=== PATIENT | female | born 1995 | race Hispanic/Latino ===

== ENCOUNTER 2025-07-31 11:25 | Inpatient (IN) | payer MEDICAID, SELFPAY ==
[2025-07-31] VITALS (174 sets, daily range): BP systolic 79–143; BP diastolic 48–105; PULSE 72–247; RESP 12–17; TEMP 36.7–37.8; O2SAT 87–100
--- NOTE | ~2025-07-31 | US_ITS ---
EXAMINATION: US OB limited, 07/31/2025 12:20 CDT HISTORY: position, limited care Comparison: None Technique: Chen-scale and color Doppler images were obtained. Findings: Single live intrauterine in longitudinal lie and vertex presentation. Placenta appears located on the right side posteriorly, evaluation is limited but the placenta appears approximately 4.3 cm away from the cervix. IMPRESSION: Single live intrauterine detailed above Reviewed, dictated and finalized at location P.
--- NOTE | ~2025-07-31 | CT_ITS ---
CT ABDOMEN AND PELVIS WITHOUT CONTRAST Clinical History: check stability of internal abdominal bleed Comparison: 7 hours prior Technique: Unenhanced axial images lung bases to symphysis pubis Coronal, sagittal reformats CT images acquired with automatic exposure control for dose reduction DLP: 711 mGy-cm Findings/impression: 1. Volume and distribution of intra-abdominal hemorrhage not significantly changed. 2. No other significant change or acute abnormality. 3. Additional findings as before. Reviewed, dictated and finalized at location R.
--- NOTE | ~2025-07-31 | CT_ITS ---
CT abdomen pelvis w con Clinical History: hypotension post section . Comparison: None Technique: Axial images lung bases to symphysis pubis 100 mL Omnipaque 350 Coronal, sagittal reformats CT images acquired with automatic exposure control for dose reduction DLP: 496 mGy-cm Findings: Lung bases: Clear. Visualized heart and pericardium: Unremarkable. Liver: Unremarkable. Gallbladder: Unremarkable. Spleen: Unremarkable. Pancreas: Unremarkable. Adrenal glands: Unremarkable. Kidneys: Right kidney- No hydronephrosis. No renal stones. Left kidney- No hydronephrosis. No renal stones. Distal esophagus/stomach: Unremarkable. Small bowel loops: Normal caliber and wall thickness. Colon: Normal caliber and wall thickness. Appendix not seen. Nodes: No enlarged nodes. Peritoneum: Scattered peritoneal fluid and hemorrhage. Extensive free air. Urinary bladder: Baum catheter. Uterus: Enlarged/. Several foci of hemorrhage anterior to lower uterine segment; associated subcutaneous, intramuscular, and intra-abdominal locules of gas consistent with recent operative state. Adnexa: Poorly distinguished from fluid and blood products. Small blush right side probably venous. Bones: No acute bony abnormality. Soft tissues: Small intramuscular gas lower paraspinal muscle likely iatrogenic. Aorta: No aneurysm or dissection. IVC: Unremarkable. Main portal vein/SMV/splenic vein: Patent. IMPRESSION: 1. Scattered foci of intra-abdominal hemorrhage, fluid, and free air after . Reviewed, dictated and finalized at location R. IMPRESSION: 1. Scattered foci of intra-abdominal hemorrhage, fluid, and free air after C-s ection.
[2025-07-31] MEDS: LACTATED RINGERS 1,000 ML 999 ML IV CONT (12:18)
[2025-07-31 12:35] LABS: Hematocrit 39.4 % (37.0-47.0); Hemoglobin 13.7 g/dL (12.0-15.0); Immature Granulocyte Percent A 0.5 % (0-0.5); Lymphocytes Absolute Auto 1.78 K/mm3 (0.9-3.2); Mean Corpuscular HGB Conc 34.8 g/dl (32-36); Mean Corpuscular Hemoglobin 31.5 pg (26-34); Mean Corpuscular Volume 90.6 fl (80-100); Nucleated Red Blood Cells Absolute Auto 0.000 K/mm3 (0.0-0.012); Nucleated Red Blood Cells Perc 0.0 % (0.0-0.2); Platelet Count Result 174 k/mm3 (150-375); Red Blood Count 4.35 M/mm3 (4.2-5.4); White Blood Count 12.3 K/mm3 (4.5-10.0)
--- NOTE | 2025-07-31 12:38 | LDADM ---
This patient, Evette Harper, was admitted to Labor/Delivery/Recovery 120 on 07/31/25 at 11:25. Plans for labor and , pain management and were discussed with patient. Patient/family oriented to hospital policies and general routines including ID bracelet, bed and alarms, visiting hours, pain management, procedures, bathroom and other care routines, personal items, smoking policy, room service/diet and guest tray routines, infant security routines, and visiting hours. Patient/Family are encouraged to report perceived risks to care and to ask questions if they do not understand what they are told or what they should do. See OBIX for further documentation.
[2025-07-31 12:50] LABS: Alanine Aminotransferase 15 U/L (6-35); Albumin Level 4.1 g/dL (3.5-5.1); Alkaline Phosphatase 224 U/L (38-126); Anion Gap 9 mmol/L (4-12); Aspartate Amino Transferase 30 U/L (14-36); Bilirubin,Total 0.6 mg/dL (0.2-1.3); Blood Urea Nitrogen 10 mg/dL (7-17); Calcium 9.1 mg/dL (8.4-10.2); Carbon Dioxide 17 mmol/L (22-30); Chloride 107 mmol/L (98-107); Estimated Glomerular Filt Rate > 60; Glucose 76 mg/dL (65-110); Potassium 4.1 mmol/L (3.4-5.0); Sodium 133 mmol/L (137-145); Total Protein 7.9 g/dL (6.3-8.2); Uric Acid 5.2 mg/dL (2.5-7.5)
--- NOTE | 2025-07-31 13:03 | P.HP_ITS ---
H&P: HPI History of Present Illness Date/Time: 07/31/25 13:03 Chief Complaint: Labor at Term Narrative: This is a pleasant 29-year-old 2 para 1 whose last menstrual period is unknown but she believe she is at 39 and half weeks gestation apparently confirmed by 6 week ultrasound who is in town in active labor she is traveling through she had an early ultrasound by her history at 6 weeks putting her at 39 and weeks gestation do not have a group B strep screen or any other information present and the labs will be drawn. She has had a previous non emergent C- section for oligohydramnios and has a low-transverse incision as far she knows. She was given the risks and benefits of a trial of labor after and asked to proceed Review of Systems 2 Review of Systems: All systems reviewed & are unremarkable except as noted in HPI and below Meds Home Medications and Allergies Home Medications ?Medication ?Instructions ?Recorded ?Confirmed ?Type prenat.vits,carley,[id number] 1 tablet PO DAILY 07/3107/31/25 History Allergies Allergy/AdvReac Type Severity Reaction Status Date / Time No Known Allergies Allergy Verified 07/31/25 12:38 Vital Signs Vital Signs - 24 hr 07/31/25 12:03 07/31/25 12:16 07/31/25 12:46 Pulse Rate 90 87 86 Blood Pressure 142/85 H 136/91 H 143/79 H Exam Const: General: cooperative, healthy appearing and comfortable Nutritional Appearance: average body habitus Orientation/consciousness: oriented to person, oriented to place and oriented to time HENMT: Head: normal to inspection Resp: Effort & Inspection: normal respiratory effort Cardio: Rate: regular rate Rhythm: regular rhythm Heart sounds: S1 normal heart sound present and S2 normal heart sound present GI: Inspection: normal to inspection (Gravid soft uterus) : External Female Exam: normal external appearance Speculum Exam - Vagina: normal appearance of the vagina Speculum Exam - Cervix: normal appearance of the cervix (Cervix 375/-1. FHT is reassuring) H&P: Results Labs Labs: Short CBC 07/31/25 Range/Units 12:26 WBC 12.3 H (4.5-10.0) K/mm3 Hgb 13.7 (12.0-15.0) g/dL Hct 39.4 (37.0-47.0) % Plt Count 174 (150-375) k/mm3 BMP 07/31/25 12:26 Sodium 133 L Potassium 4.1 Chloride 107 Carbon Dioxide 17 L BUN 10 Creatinine 0.67 L Glucose 76 Calcium 9.1 Liver Function 07/31/25 Range/Units 12:26 Total Bilirubin 0.6 (0.2-1.3) mg/dL AST 30 (14-36) U/L ALT 15 (6-35) U/L Alkaline Phosphatase 224 H (38-126) U/L Albumin 4.1 (3.5-5.1) g/dL Assessment and Plan Assessment and plan (1) Term : Code(s): Z34.90 - Encounter for supervision of normal , unspecified, unspecified trimester Status: Acute (2) No care in current : Code(s): O09.30 - Supervision of with insufficient care, unspecified trimester Status: Acute (3) Previous section: Code(s): Z98.891 - History of uterine scar from previous surgery Status: Acute Plan Patient opts for trial labor after risks and benefits reviewed we will get an epidural will start ampicillin as group B strep screen not known.
[2025-07-31] MEDS: LACTATED RINGERS 1,000 ML 125 ML IV CONT ×2 (13:10→19:49)
[2025-07-31 13:21] LABS: Hepatitis B Surface Antigen Negative (Negative)
[2025-07-31 13:27] LABS: Syphilis IgG/IgM Antibody Non-Reactive (Nonreactive)
[2025-07-31 13:30] LABS: HIV 1/2 Ab P24 Ag Result Negative (Negative)
[2025-07-31] MEDS: AMPICILLIN SODIUM 2 GM in SODIUM CHLORIDE 0.9% IV 100 ML 200 ML IVPB (13:30)
--- NOTE | 2025-07-31 14:03 | PM.OBPNLAB ---
Pain Control Date/time seen: 07/31/25 14:03 Pain control: tolerating well and epidural Pelvic Exam Dilation (cm): 4 Effacement (%): 90 station: -1 Amniotic membrane status: Leaking Comments: arom mec
[2025-07-31] MEDS: SODIUM CHLORIDE 0.9% IV 300 ML 600 ML I-UTERINE (16:34)
[2025-07-31] MEDS: AMPICILLIN SODIUM 1 GM in SODIUM CHLORIDE 0.9% IV 50 ML 100 ML IVPB (17:46)
[2025-07-31] MEDS: ONDANSETRON INJ 4 MG/2 ML VIAL IV PUSH (19:27)
--- NOTE | 2025-07-31 19:54 | WPDHPUPDATE1 ---
History and Physical Update Update Date/Time: 07/31/25 19:54 History and Physical has been reviewed, including an updated exam of the patient. There are NO changes in the patient's condition. Risks, benefits, and alternatives have been discussed and questions answered. Patient agrees to proceed with procedure. Recurrent late decelerations with the earliest noted. Baby has recovered cervix has been unchanged for several hours and she was offered repeat section risks and benefits reviewed in great detail she had all questions answered and agreed to proceed
--- NOTE | 2025-07-31 19:55 | PM.DS ---
DS: Admitting Diagnosis Discharge Date 08/03/2025 Admitting Diagnosis Term /previous section/no DS: Discharge Diagnosis Discharge Diagnosis (1) Term : Code(s): Z34.90 - Encounter for supervision of normal , unspecified, unspecified trimester Status: Acute (2) No care in current : Code(s): O09.30 - Supervision of with insufficient care, unspecified trimester Status: Acute (3) Previous section: Code(s): Z98.891 - History of uterine scar from previous surgery Status: Acute DS: Summary Hospital Course Reason for hospitalization: Patient was admitted to walk-in with no care and 39 a half weeks gestation by best estimate she was to vaginal after but underwent low-transverse section on 07/31/2025 Hospital Course: Patient's hospital course was unremarkable for postop anemia. The there is set suspected small bleed in the abdomen and she received 2units of blood over the following 48hours her hemoglobin remained stable and and appeared that she was having no more active bleeding.. She remained afebrile. She was up, voiding without difficulty, eating regular with ambulating, generally complaints Time Spent with Patient Time attestation: Total time spent providing and/or coordinating discharge services: Exam Const: General: cooperative, healthy appearing and comfortable Nutritional Appearance: average body habitus Orientation/consciousness: oriented to person, oriented to place and oriented to time Resp: Effort & Inspection: normal respiratory effort Cardio: Rate: regular rate Rhythm: regular rhythm Heart sounds: S1 normal heart sound present and S2 normal heart sound present GI: Inspection: normal to inspection and incision (Wounds are clean dry and intact) DS: Data Data Completed and Pending Labs on day of discharge: Labs from last 24 hours 07/31/25 07/31/25 12:27 12:26 WBC 12.3 H RBC 4.35 Hgb 13.7 Hct 39.4 MCV 90.6 MCH 31.5 MCHC 34.8 RDW 12.6 Plt Count 174 MPV 12.7 H Immature Gran % (Auto) 0.5 Neut % (Auto) 80.5 H Lymph % (Auto) 14.4 L [place] % (Auto) 4.2 Eos % (Auto) 0.2 Baso % (Auto) 0.2 Lymph # (Auto) 1.78 [place] # (Auto) 0.5 Eos # (Auto) 0.0 Baso # (Auto) 0.0 Abs Immat Gran (auto) 0.06 H Absolute Neuts (auto) 9.9 H Absolute Nucleated RBC 0.000 Nucleated RBC % 0.0 Sodium 133 L Potassium 4.1 Chloride 107 Carbon Dioxide 17 L Anion Gap 9 BUN 10 Creatinine 0.67 L Estim Creat Clear Calc Not Reportable Estimated GFR > 60 Glucose 76 Uric Acid 5.2 Calcium 9.1 Total Bilirubin 0.6 AST 30 ALT 15 Alkaline Phosphatase 224 H Total Protein 7.9 Albumin 4.1 Syphilis IgG/IgM Ab Non-reactive Hep Bs Antigen Negative HIV 1&2 Ab/P24 Ag 4thGn Negative Rubella IgG Antibody 6.9 L Blood Type O Positive Antibody Screen Negative Discharge Plan Discharge Attending physician on discharge: Chandu Mclaughlin Discharging Clinician: Chandu Mclaughlin Patient Disposition: Home Activity: may shower, no straining and pelvic rest Diet: heart healthy Wound Care Instructions: follow printed instructions Patient Instructions: Antibiotic Form Patient Language: Nam[place]ian Stand Alone Forms: General Discharge Information Follow-up/Referrals: Chandu Mclaughlin MD [Physician, ACCOUNTING MANAGER CONTROLLER] Discharge Medications: New hydrocodone-acetaminophen 5-325 mg tablet 1 tablet PO Q4H PRN (Reason: pain) Qty: 20 0RF Continued prenat.vits,carley,[id number] Tablet 1 tablet PO DAILY Date of admission: 07/31/25 13:12 Primary Care Provider: UNKNOWN,DOCTOR Admitting Provider: Chandu Mclaughlin Attending physician on admission: Chandu Mclaughlin Condition: Stable
[2025-07-31] MEDS: FAMOTIDINE 20 MG/2 ML VIAL (19:58)
[2025-07-31] MEDS: ACETAMINOPHEN 500 MG TABLET 1000 MG PO (20:00)
[2025-07-31] MEDS: FAMOTIDINE 20 MG/2 ML VIAL IV PUSH (20:00)
[2025-07-31] MEDS: AZITHROMYCIN IV 500 MG in SODIUM CHLORIDE 0.9% IV 250 ML IVPB (20:21)
[2025-07-31] MEDS: ceFAZolin 2 GM in SODIUM CHLORIDE 0.9% IV 50 ML 100 ML IVPB (20:21)
--- NOTE | 2025-07-31 21:03 | P.PCNOB_ITS ---
OB - Delivery Note Procedure Delivery date: 07/31/25 Pre-op diagnosis: Non-Reassuring Status and Previous Delivery Post-op Diagnosis: Same Induction method: None Delivery augmentation: Pitocin Delivery monitor: External FHT and Internal Uterine Prior to decision for section, ACOG/SMFM labor guidelines were considered and discussed with the patient and staff. Decision made to proceed with the section.: Yes Procedure Performed: Repeat Surgeon: Chandu Escobedo MD Anesthesia type: Epidural Description of Procedure/Findings: Patient was admitted at term with really no care except stating that she had a 6 week ultrasound confirming dates making her 39 and half weeks gestation she had previous section membrane rupture showed meconium- stained fluid she progressed to a 1st early part of labor without difficulty and then began to have recurrent decelerations an IUPC was placed and out fluid added she progressed to to 7cm did not post exchange manager several hours began to have recurrent decelerations and decision was made for low-transverse section. After obtaining informed consent she was taken back prepped draped in normal sterile fashion placed in the supine position under excellent epidural anesthesia the abdomen was entered in Pfannenstiel fashion progressive layers of fascia. Fascia incised midline care number out fashion bilaterally underlying muscles sharply dissected. Prior perineum like a clamps and by sharp dissection carried superiorly and inferiorly dome bladder blade placed. Bladder blade flap formed. Bladder blade returned a low transverse incision made head delivered in the LINDA position anterior posterior shoulder delivered spontaneously cord clamped was cut passed off the table to cry placenta delivered intact manually uterus delivered on the abdomen wrapped in moist towel assuring membranes or debris remained in the uterus, the uterus closed continuous running 0 Vicryl from lateral edge to lateral edge followed by 2nd imbricating running locking 0 Vicryl from lateral edge to lateral edge. Hemostasis was assured the uterus returned the abdomen the hysterotomy incision inspected 1 last time after noting normal ovaries and tubes bilaterally. Laps removed and accounted for the fascia closed with continuous running 0 Vicryl from lateral edge to lateral edge irrigation subcutaneous layer and the skin closed with 4 Monocryl glue QBL was 690cc. All sponge, needle, instrument counts were correct. There were no immediate complications Estimated Blood Loss: 690 Drains: No Packing: No Pathology: None sent Complications: No immediate complications Condition: Stable Disposition: PACU [place] Baby Date of : 07/31/25 Time of : 20:45 Gestational Age by Date: 39 gender: Male position: Right Occiput Anterior Placenta delivery description: Manual Removal Cord Vessel Description: 3 Vessels
[2025-07-31] MEDS: OXYTOCIN 30 UNITS/NS 500 ML 30 UNITS/500 ML BAG 125 UNITS IV CONT (21:45)
[2025-07-31] MEDS: LIDOCAINE 5% PATCH 1 PATCH TRANSDERM (22:35)
--- NOTE | 2025-07-31 23:47 | OBPPTRN ---
Patient transferred to post room #282 via stretcher. Oriented to unit, room, information board, rooming in, admission packet and security measures via stratus senior manager creative services. Patient verbalizes understanding.
[2025-08-01] VITALS (145 sets, daily range): BP systolic 63–129; BP diastolic 32–97; PULSE 78–125; RESP 14–18; TEMP 36.6–37.6; O2SAT 96–100
[2025-08-01] MEDS: KETOROLAC 15 MG/ML VIAL (*BKC) IV PUSH ×2 (00:20→06:38)
[2025-08-01] MEDS: ACETAMINOPHEN 500 MG TABLET 1000 MG PO ×4 (00:20→18:58)
[2025-08-01] MEDS: DEXTROSE 5%/0.45% SOD CHL 1,000 ML 999 ML IV CONT (01:10)
[2025-08-01 01:11] LABS: Hematocrit 24.7 % (37.0-47.0); Hemoglobin 8.4 g/dL (12.0-15.0); Immature Granulocyte Percent A 0.2 % (0-0.5); Lymphocytes Absolute Auto 2.32 K/mm3 (0.9-3.2); Mean Corpuscular HGB Conc 34.0 g/dl (32-36); Mean Corpuscular Hemoglobin 31.7 pg (26-34); Mean Corpuscular Volume 93.2 fl (80-100); Nucleated Red Blood Cells Absolute Auto 0.000 K/mm3 (0.0-0.012); Nucleated Red Blood Cells Perc 0.0 % (0.0-0.2); Platelet Count Result 137 k/mm3 (150-375); Red Blood Count 2.65 M/mm3 (4.2-5.4); White Blood Count 12.1 K/mm3 (4.5-10.0)
--- NOTE | 2025-08-01 01:25 | PC.NURSE ---
Robbi Hunt RN in patient's room when patient stated she did not feel well. Robbi Hunt RN stated that patient was pale and saying that it felt like she was dizzy and that it was hard for her to breathe. Robbi Hutn RN then obtained VS and assessed bleeding and called Ezekiel Pepper RN and Abby Diaz RN for assistance. 0121- RN notified Dr. Christine Escobedo of patient's status. RN notified MD of vital signs, QBL, lab results, patient's pain that she is rating a 9/10 and that abdomen is tender to touch, but is soft and no bruising is noted and that skin is not warm to touch. RN notified MD that Abby Diaz RN assessed bleeding and that fundus was a little off to the right and 1 above U, but that it is firm and joyce catheter is draining. RN notified MD that fundus was firm and @U/midline in recovery room. RN also notified MD of patient's blood sugar and that patient has received 1000ml LR bolus and that D5/Ns is currently blousing. RN also notified MD that patient has drank an apple juice and a cranberry juice. RN notified MD that patient's color looks much better and that blood pressures are back to baseline. RN notified MD of Patient's drop in hemoglobin. MD gave orders for a CBC at 0500 and to give the patient morphine(see Mar for order) if needed. MD also gave orders to do blood pressures hourly.
[2025-08-01] MEDS: MORPHINE SULFATE (*CRX) 4 MG/ML INJ 2 MG IV PUSH (01:47)
[2025-08-01] MEDS: KCL 20 MEQ/D5/0.45% SOD CHL 1,000 ML 125 ML IV CONT (02:30)
--- NOTE | 2025-08-01 02:51 | PC.NURSE ---
THIS RN REQUESTED TO BEDSIDE TO ASSESS PT. PT'S BP 80s/50s, PT SYMPTOMATIC. PT DROWSY AND PALE. LABS DRAWN AND PROVIDER NOTIFIED.
--- NOTE | 2025-08-01 03:10 | PC.NURSE ---
PROVIDER AT BEDSIDE. ASSESSMENT DONE BY DR. TEE CHRISTENSEN. ORDERS RECEIVED FOR ABDOMINAL/PELVIC CT SCAN, 2 UNITS PRBCs AND REPEAT CBCD AFTER BLOOD ADMIN.
[2025-08-01 03:13] LABS: Hematocrit 22.4 % (37.0-47.0); Hemoglobin 7.6 g/dL (12.0-15.0); Immature Granulocyte Percent A 0.3 % (0-0.5); Immature Platelet Fraction Pct 12.1 % (0.9-11.2); Lymphocytes Absolute Auto 1.44 K/mm3 (0.9-3.2); Mean Corpuscular HGB Conc 33.9 g/dl (32-36); Mean Corpuscular Hemoglobin 31.4 pg (26-34); Mean Corpuscular Volume 92.6 fl (80-100); Nucleated Red Blood Cells Absolute Auto 0.000 K/mm3 (0.0-0.012); Nucleated Red Blood Cells Perc 0.0 % (0.0-0.2); Platelet Count Result 141 k/mm3 (150-375); Red Blood Count 2.42 M/mm3 (4.2-5.4); White Blood Count 11.8 K/mm3 (4.5-10.0)
--- NOTE | 2025-08-01 03:21 | P.PNOB_ITS ---
OB - PN: Subj Subjective Date/time seen: 08/01/25 03:21 Interval history: Called to see patient concerning soft pressures. She has been polyp history urine output appears within normal limits the incision appears clean dry and intact and the abdomen is soft. Initial hemoglobin showed a significant drop but she appeared dry at the time of procedure. CBCs pending at the moment. Hemoglobin was 7.6 OB - PN: Obj Data Labs 08/01/25 03:00 07/31/25 12:26 Labs: Laboratory Results - last 24 hr 07/31/25 07/31/25 08/01/25 12:26 12:27 01:06 WBC 12.3 H 12.1 H RBC 4.35 2.65 L Hgb 13.7 8.4 L D Hct 39.4 24.7 L MCV 90.6 93.2 MCH 31.5 31.7 MCHC 34.8 34.0 RDW 12.6 13.0 Plt Count 174 137 L MPV 12.7 H 12.0 H Immature Gran % (Auto) 0.5 0.2 Neut % (Auto) 80.5 H 74.6 H Lymph % (Auto) 14.4 L 19.2 [place] % (Auto) 4.2 5.5 Eos % (Auto) 0.2 0.1 Baso % (Auto) 0.2 0.4 Lymph # (Auto) 1.78 2.32 [place] # (Auto) 0.5 0.7 H Eos # (Auto) 0.0 0.0 Baso # (Auto) 0.0 0.1 Abs Immat Gran (auto) 0.06 H 0.03 Absolute Neuts (auto) 9.9 H 9.0 H Absolute Nucleated RBC 0.000 0.000 Nucleated RBC % 0.0 0.0 % Immature Plt Fraction Sodium 133 L Potassium 4.1 Chloride 107 Carbon Dioxide 17 L Anion Gap 9 BUN 10 Creatinine 0.67 L Estim Creat Clear Calc Not Reportable Estimated GFR > 60 Glucose 76 POC Capillary Glucose 77 Uric Acid 5.2 Calcium 9.1 Total Bilirubin 0.6 AST 30 ALT 15 Alkaline Phosphatase 224 H Total Protein 7.9 Albumin 4.1 Syphilis IgG/IgM Ab Non-reactive Hep Bs Antigen Negative HIV 1&2 Ab/P24 Ag 4thGn Negative Rubella IgG Antibody 6.9 L Blood Type O Positive Antibody Screen Negative 08/01/25 08/01/25 02:12 03:00 WBC 11.8 H RBC 2.42 L Hgb 7.6 L Hct 22.4 L MCV 92.6 MCH 31.4 MCHC 33.9 RDW 13.0 Plt Count 141 L MPV 12.2 H Immature Gran % (Auto) 0.3 Neut % (Auto) 83.2 H Lymph % (Auto) 12.2 L [place] % (Auto) 3.9 Eos % (Auto) 0.1 Baso % (Auto) 0.3 Lymph # (Auto) 1.44 [place] # (Auto) 0.5 Eos # (Auto) 0.0 Baso # (Auto) 0.0 Abs Immat Gran (auto) 0.04 H Absolute Neuts (auto) 9.9 H Absolute Nucleated RBC 0.000 Nucleated RBC % 0.0 % Immature Plt Fraction 12.1 H Sodium Potassium Chloride Carbon Dioxide Anion Gap BUN Creatinine Estim Creat Clear Calc Estimated GFR Glucose POC Capillary Glucose 225 H Uric Acid Calcium Total Bilirubin AST ALT Alkaline Phosphatase Total Protein Albumin Syphilis IgG/IgM Ab Hep Bs Antigen HIV 1&2 Ab/P24 Ag 4thGn Rubella IgG Antibody Blood Type Antibody Screen Imaging Radiologist's impression: Impressions Obstetrics Ultrasound 07/31/25 14:20 IMPRESSION: Single live intrauterine detailed above OB - PN A/P Time Spent With Patient Time: Total time spent is greater than 50% in coordination of care (as documented) at patient's floor/unit and/or counseling patient: Review of Systems 2 Review of Systems: All systems reviewed & are unremarkable except as noted in HPI and below Exam 2 Const: General: cooperative, comfortable and alert Nutritional Appearance: average body habitus Orientation/consciousness: oriented to person, oriented to place and oriented to time Resp: Effort & Inspection: normal respiratory effort Cardio: Rate: regular rate Rhythm: regular rhythm Heart sounds: S1 normal heart sound present and S2 normal heart sound present GI: Inspection: normal to inspection and incision (The wound is clean dry and intact)
[2025-08-01 03:29] LABS: INR 1.2; Prothrombin Time 15.4 Seconds (11.1-14.7)
[2025-08-01 03:30] LABS: Partial Thromboplastin Time 31.2 Seconds (22.3-36.8)
--- NOTE | 2025-08-01 03:35 | PC.NURSE ---
Pt left floor via stretcher to go to CT.
--- NOTE | 2025-08-01 03:35 | PC.NURSE ---
0047: This RN notified charge nurse Shirley Diaz of patient's decreased BP: 65/35 Pulse: 84 0050: Charge nurse arrived in the patient's room. Patient complained of right shoulder pain, nausea, and stated, I feel like I'm going to sleep. 1L LR Bolus was hung with a pressure bag to help it infuse quicker. 0056: BP: 63/32 Pulse: 105 0102: BP: 67/32 Pulse: 97 0106: BP: 92/59 Pulse: 87. Repeat H+H drawn. Pt stated, I feel cold. Blood sugar checked which was 77. 0110: LR infused and D51/2NS was hung at 500ml/hr with pressure bag 0112: BP: 103/64 Pulse: 90 0115: BP: 104/53 Pulse: 92 0118: BP: 112/63 Pulse:96 0130: RN emptied 50ml of dark yellow urine out of catheter Patient stated, I'm feeling a lot better but still having bad pain in my stomach. Rating it a 9/10. 0147: RN administered 2mg Morphine as ordered by Dr. Christine Escobedo. 0150: BP: 100/62 Pulse: 106 0212: Repeat BS 225 0215: BP: 80/53 Pulse: 110 0227: BP: 91/51 Pulse: 112 Notified Shirley Diaz RN on patient's still decreasing BP's 0245: BP: 91/47 Pulse: 115 0247: Updated Shirley Daiz on Pt's status and requested her to come lay eyes on the patient. Malu Hanks RN called Dr. Christine Escobedo Emptied 100ml of reddish urine out of catheter 0300: BP: 84/47 Pulse: 110 75ml of reddish urine emptied. CBC and PT,INR, and PTT were drawn and sent 0312: Dr. Christine Escobedo arrived in pts room. BP: 83/49 Pulse: 107 0315: BP: 86/54 Pulse: 106 0330: BP: 74/41 Pulse: 104 0335: Pt left floor on stretcher to go to CT. Communicated with patient via stratus during this time and all questions were answered.
[2025-08-01] MEDS: SODIUM CHLORIDE 0.9% IV 250 ML 30 ML IV CONT (04:30)
--- NOTE | 2025-08-01 04:42 | P.PNOB_ITS ---
OB - PN: Subj Subjective Date/time seen: 08/01/25 04:42 Interval history: Called to see patient concerning soft pressures. She has been polyp history urine output appears within normal limits the incision appears clean dry and intact and the abdomen is soft. Initial hemoglobin showed a significant drop but she appeared dry at the time of procedure. CBCs pending at the moment. Hemoglobin was 7.6 OB - PN: Obj Data Labs 08/01/25 03:00 07/31/25 12:26 Labs: Laboratory Results - last 24 hr 07/31/25 07/31/25 08/01/25 12:26 12:27 01:06 WBC 12.3 H 12.1 H RBC 4.35 2.65 L Hgb 13.7 8.4 L D Hct 39.4 24.7 L MCV 90.6 93.2 MCH 31.5 31.7 MCHC 34.8 34.0 RDW 12.6 13.0 Plt Count 174 137 L MPV 12.7 H 12.0 H Immature Gran % (Auto) 0.5 0.2 Neut % (Auto) 80.5 H 74.6 H Lymph % (Auto) 14.4 L 19.2 [place] % (Auto) 4.2 5.5 Eos % (Auto) 0.2 0.1 Baso % (Auto) 0.2 0.4 Lymph # (Auto) 1.78 2.32 [place] # (Auto) 0.5 0.7 H Eos # (Auto) 0.0 0.0 Baso # (Auto) 0.0 0.1 Abs Immat Gran (auto) 0.06 H 0.03 Absolute Neuts (auto) 9.9 H 9.0 H Absolute Nucleated RBC 0.000 0.000 Nucleated RBC % 0.0 0.0 % Immature Plt Fraction PT INR APTT Sodium 133 L Potassium 4.1 Chloride 107 Carbon Dioxide 17 L Anion Gap 9 BUN 10 Creatinine 0.67 L Estim Creat Clear Calc Not Reportable Estimated GFR > 60 Glucose 76 POC Capillary Glucose 77 Uric Acid 5.2 Calcium 9.1 Total Bilirubin 0.6 AST 30 ALT 15 Alkaline Phosphatase 224 H Total Protein 7.9 Albumin 4.1 Syphilis IgG/IgM Ab Non-reactive Hep Bs Antigen Negative HIV 1&2 Ab/P24 Ag 4thGn Negative Rubella IgG Antibody 6.9 L Blood Type O Positive Antibody Screen Negative Crossmatch See Detail 08/01/25 08/01/25 02:12 03:00 WBC 11.8 H RBC 2.42 L Hgb 7.6 L Hct 22.4 L MCV 92.6 MCH 31.4 MCHC 33.9 RDW 13.0 Plt Count 141 L MPV 12.2 H Immature Gran % (Auto) 0.3 Neut % (Auto) 83.2 H Lymph % (Auto) 12.2 L [place] % (Auto) 3.9 Eos % (Auto) 0.1 Baso % (Auto) 0.3 Lymph # (Auto) 1.44 [place] # (Auto) 0.5 Eos # (Auto) 0.0 Baso # (Auto) 0.0 Abs Immat Gran (auto) 0.04 H Absolute Neuts (auto) 9.9 H Absolute Nucleated RBC 0.000 Nucleated RBC % 0.0 % Immature Plt Fraction 12.1 H PT 15.4 H INR 1.2 APTT 31.2 Sodium Potassium Chloride Carbon Dioxide Anion Gap BUN Creatinine Estim Creat Clear Calc Estimated GFR Glucose POC Capillary Glucose 225 H Uric Acid Calcium Total Bilirubin AST ALT Alkaline Phosphatase Total Protein Albumin Syphilis IgG/IgM Ab Hep Bs Antigen HIV 1&2 Ab/P24 Ag 4thGn Rubella IgG Antibody Blood Type Antibody Screen Crossmatch Imaging My impression: CT shows a moderate amount of fluid collection in the pelvic gutter. She presently appears stable will give her 2units repeat H&H. Patient may require reexploration Radiologist's impression: Impressions Obstetrics Ultrasound 07/31/25 14:20 IMPRESSION: Single live intrauterine detailed above OB - PN A/P Time Spent With Patient Time: Total time spent is greater than 50% in coordination of care (as documented) at patient's floor/unit and/or counseling patient:
--- NOTE | 2025-08-01 05:51 | PC.NURSE ---
Addendum entered by Malu Hanks RN 08/01/25 05:55: MD phoned in for patient update. RN notified MD of patient's VS, how much patient has left of the blood, and what her current urine output is. RN also notified MD that patient is resting. MD gave orders to repeat CBC one hour after both units of blood are in. Original Note: Md phond in for patient update. RN notified MD of patient's VS, how much patient has left of the blood, and what her current urine output is. RN also notified MD that patient is resting. MD gave orders to repeat CBC one hour after both units of blood are in.
--- NOTE | 2025-08-01 06:17 | PC.NURSE ---
0600- This RN gave shift report to Sandra Nails RN
--- NOTE | 2025-08-01 06:39 | PC.NURSE ---
Pt reports having 10/10 pain. Pt dosing off and on mannerisms not matching pain rating, medication given to treat reported pain level.
[2025-08-01 09:25] LABS: Hematocrit 26.8 % (37.0-47.0); Hemoglobin 9.2 g/dL (12.0-15.0); Immature Platelet Fraction Pct 11.5 % (0.9-11.2); Mean Corpuscular HGB Conc 34.3 g/dl (32-36); Mean Corpuscular Hemoglobin 29.9 pg (26-34); Mean Corpuscular Volume 87.0 fl (80-100); Platelet Count Result 120 k/mm3 (150-375); Red Blood Count 3.08 M/mm3 (4.2-5.4); White Blood Count 13.2 K/mm3 (4.5-10.0)
[2025-08-01] MEDS: SIMETHICONE 80 MG TAB.CHEW PO ×4 (09:36→18:58)
--- NOTE | 2025-08-01 09:54 | PC.NURSE ---
Pt states it hurts to take a deep breath. States it is up by her shoulders. Lungs CTA bilaterally. Pt unable to take a deep breath due to pain. Discussed possible normal post pain but could be something else. Instructed to notify RN if pain worsens or does not get better. Will try sitting up, a warm blanket, mylicon and chewing gum.
--- NOTE | 2025-08-01 10:24 | PC.NURSE ---
Pt reports pain is better in her upper chest/shoulder area.
[2025-08-01] MEDS: DEXTROSE 5%/0.45% SOD CHL 1,000 ML 125 ML IV CONT ×2 (11:19→19:35)
--- NOTE | 2025-08-01 11:30 | PC.NURSE ---
Pt transported to the Mother/Baby unit. Report given to Sandra Jauregui RN.
--- NOTE | 2025-08-01 11:30 | PC.NURSE ---
Patient transferred to room #282 per bed.
[2025-08-01 13:48] LABS: Hematocrit 24.7 % (37.0-47.0); Hemoglobin 8.5 g/dL (12.0-15.0); Mean Corpuscular HGB Conc 34.4 g/dl (32-36); Mean Corpuscular Hemoglobin 29.9 pg (26-34); Mean Corpuscular Volume 87.0 fl (80-100); Platelet Count Result 121 k/mm3 (150-375); Red Blood Count 2.84 M/mm3 (4.2-5.4); White Blood Count 12.8 K/mm3 (4.5-10.0)
[2025-08-01] MEDS: DOCUSATE SODIUM 100 MG CAPSULE PO (16:53)
--- NOTE | 2025-08-01 16:55 | WPDANLDNPN2 ---
Anes-Prog Note L&D-Neuraxial Date/Time: 08/01/25 16:55 Neuraxial medications: epidural PF morphine Opiod-related complaints: none Patient feedback: Patient satisfied with post-operative pain management.
--- NOTE | 2025-08-01 16:56 | WPDANLDPN2 ---
Anes-Prog Note L&D Date/Time: 08/01/25 16:56 Comfortable throughout: labor and section Neuraxial method: epidural Epidural/Spinal procedure site: clean & non-tender Neuro status: Neuro function grossly intact. Cardiovascular status: normal Respiratory status: normal Airway patency: baseline Mental status: baseline Post-Op hydration status: normal Vital Signs: Last Vital Signs Temp 99.3 F 08/01/25 15:50 Pulse 86 08/01/25 15:50 Resp 16 08/01/25 15:50 BP 118/75 08/01/25 15:50 Pulse Ox 98 08/01/25 15:50 O2 Del Method Room Air 08/01/25 15:50 Pain score (VAS): 0 I/O: Intake & Output 08/01/25 08/01/25 08/01/25 07:59 15:59 23:59 Intake Total 350 1850 Output Total 725 1225 Balance -375 625 Post-procedural complaints: none Patient feedback: Patient satisfied with anesthetic care.
[2025-08-01 20:18] LABS: Hematocrit 26.2 % (37.0-47.0); Hemoglobin 8.9 g/dL (12.0-15.0)
[2025-08-02 00:17] VITALS: BP 120/71; PULSE 98
[2025-08-02] MEDS: ACETAMINOPHEN 500 MG TABLET 1000 MG PO ×4 (01:00→19:15)
[2025-08-02] MEDS: oxyCODONE HCL (*CRX) 5 MG TAB IR PO ×3 (03:55→15:25)
[2025-08-02 04:00] VITALS: BP 118/67; PULSE 117; RESP 16; TEMP 36.8; O2SAT 98
[2025-08-02 05:02] LABS: Hematocrit 24.3 % (37.0-47.0); Hemoglobin 8.3 g/dL (12.0-15.0)
--- NOTE | 2025-08-02 07:19 | P.PNOB_ITS ---
OB - PN: Subj Subjective Date/time seen: 08/02/25 07:19 Interval history: Called to see patient concerning soft pressures. She has been polyp history urine output appears within normal limits the incision appears clean dry and intact and the abdomen is soft. Initial hemoglobin showed a significant drop but she appeared dry at the time of procedure. CBCs pending at the moment. Hemoglobin was 7.6 Patient comments: no complaints, pain well controlled, tolerating diet and flatus present baby status: doing well OB - PN: Obj Data Labs 08/02/25 03:36 07/31/25 12:26 Labs: Laboratory Results - last 24 hr 07/31/25 08/01/25 08/01/25 12:26 09:16 13:43 WBC 13.2 H 12.8 H RBC 3.08 L 2.84 L Hgb 9.2 L 8.5 L Hct 26.8 L 24.7 L MCV 87.0 D 87.0 MCH 29.9 29.9 MCHC 34.3 34.4 RDW 15.2 H 15.7 H Plt Count 120 L 121 L MPV 12.4 H 12.2 H % Immature Plt Fraction 11.5 H Crossmatch See Detail 08/01/25 08/02/25 20:07 03:36 WBC RBC Hgb 8.9 L 8.3 L Hct 26.2 L 24.3 L MCV MCH MCHC RDW Plt Count MPV % Immature Plt Fraction Crossmatch Imaging Radiologist's impression: Impressions Abdomen/Pelvis CT 08/01/25 07:16 IMPRESSION: 1. Scattered foci of intra-abdominal hemorrhage, fluid, and free air after C- section. OB - PN A/P Assessment and Plan (1) Term : Code(s): Z34.90 - Encounter for supervision of normal , unspecified, unspecified trimester Status: Acute (2) No care in current : Code(s): O09.30 - Supervision of with insufficient care, unspecified trimester Status: Acute (3) Previous section: Code(s): Z98.891 - History of uterine scar from previous surgery Status: Acute (4) Anemia: Code(s): D64.9 - Anemia, unspecified Status: Acute Plan Increase activity. Begin iron replacement. Continue to observe closely Time Spent With Patient Time: Total time spent is greater than 50% in coordination of care (as documented) at patient's floor/unit and/or counseling patient: Review of Systems 2 Review of Systems: All systems reviewed & are unremarkable except as noted in HPI and below Exam 2 Const: General: cooperative, healthy appearing and comfortable O rientation/consciousness: oriented to person, oriented to place and oriented to time Resp: Effort & Inspection: normal respiratory effort Cardio: Rate: regular rate Rhythm: regular rhythm Heart sounds: S1 normal heart sound present and S2 normal heart sound present GI: Inspection: normal to inspection and incision (Wound is clean dry and intact)
[2025-08-02 07:20] VITALS: BP 123/76; PULSE 115; RESP 16; TEMP 36.9; O2SAT 97
[2025-08-02] MEDS: SIMETHICONE 80 MG TAB.CHEW PO ×3 (07:20→15:24)
[2025-08-02] MEDS: MULTIVIT/MIN/PREN/FOL AC/IRON TABLET 1 TAB PO (07:20)
[2025-08-02] MEDS: DOCUSATE SODIUM 100 MG CAPSULE PO ×2 (07:20→15:24)
--- NOTE | 2025-08-02 07:40 | PC.NURSE ---
Patient would like to attempt at this time. She breastfed her 2 year old for 18 months and has good experience. She began the feeding attempt in cradle hold. Baby is eager and makes many attempts to latch. He has a wide gape most of the time. He purses his lips at latch on and pushes the nipple out of his mouth with his first one or two sucks. We tried for a few minutes and then mom was shown cross cradle hold. She holds her breast well and tries to make a bite for baby to latch to. With minimal assistance, she was able to latch baby and he maintained suction, suckling consistently. Mom is assisted to prop baby up with pillows to relieve tension in her arms and back while holding the cross cradle position. She is encouraged to feed at breast as long as desired and she has formula bottles to supplement with after feeding if desired. Primary RN updated.
[2025-08-02 15:15] VITALS: BP 130/88; PULSE 110
[2025-08-02] MEDS: LANOLIN (LANSINOH) 7.5 GM CREAM 1 APPLIC TOPICAL (15:25)
[2025-08-02 19:15] VITALS: BP 137/82; PULSE 111; RESP 16; TEMP 36.7; O2SAT 99
[2025-08-03] MEDS: ACETAMINOPHEN 500 MG TABLET 1000 MG PO ×3 (01:19→12:51)
[2025-08-03 03:45] VITALS: BP 120/73; PULSE 100; O2SAT 100
[2025-08-03] MEDS: SIMETHICONE 80 MG TAB.CHEW PO ×2 (06:55→12:51)
[2025-08-03] MEDS: DOCUSATE SODIUM 100 MG CAPSULE PO (06:55)
[2025-08-03] MEDS: MULTIVIT/MIN/PREN/FOL AC/IRON TABLET 1 TAB PO (06:55)
--- NOTE | 2025-08-03 07:14 | P.PNOB_ITS ---
OB - PN: Subj Subjective Date/time seen: 08/03/25 07:14 Interval history: Called to see patient concerning soft pressures. She has been polyp history urine output appears within normal limits the incision appears clean dry and intact and the abdomen is soft. Initial hemoglobin showed a significant drop but she appeared dry at the time of procedure. CBCs pending at the moment. Hemoglobin was 7.6 Patient comments: no complaints, pain well controlled, tolerating diet and flatus present baby status: doing well OB - PN: Obj Data Labs 08/02/25 03:36 07/31/25 12:26 OB - PN A/P Assessment and Plan (1) Previous section: Code(s): Z98.891 - History of uterine scar from previous surgery Status: Acute (2) No care in current : Code(s): O09.30 - Supervision of with insufficient care, unspecified trimester Status: Acute (3) Term : Code(s): Z34.90 - Encounter for supervision of normal , unspecified, unspecified trimester Status: Acute (4) Anemia: Code(s): D64.9 - Anemia, unspecified Status: Acute Plan f/u 1 week Time Spent With Patient Time: Total time spent is greater than 50% in coordination of care (as documented) at patient's floor/unit and/or counseling patient: Review of Systems 2 Review of Systems: All systems reviewed & are unremarkable except as noted in HPI and below Exam 2 Const: General: cooperative, healthy appearing and comfortable O rientation/consciousness: oriented to person, oriented to place and oriented to time Resp: Effort & Inspection: normal respiratory effort Cardio: Rate: regular rate Rhythm: regular rhythm Heart sounds: S1 normal heart sound present and S2 normal heart sound present GI: Inspection: normal to inspection and incision (Wound is clean dry and intact)
[2025-08-03 07:53] VITALS: BP 121/73; PULSE 92; RESP 17; TEMP 36.6; O2SAT 97
--- NOTE | 2025-08-03 10:07 | PCCCNOTE ---
Maitre D' met with patient at bedside. Mother (Markel) only speaks [place], therefore a [employer] was used to interpret the assessment. Patient reports living in [place] with her partner. Patient reports she is not but the father of the baby is also her other child's father whom is currently at home (age 4). Patient reports not currently working but her partner works full-time to care for the family. Patient reports her plan to breast feed and reports having resources for the baby. Mother reports having a follow up appointment with MALINI Vicente through [facility] outpatient. [employer] Merch[employer]iser left resources for WIC and other follow up after discharge at bedside. Patient reports her partner will transport her and the baby home at discharge and will bring baby carseat and other belongings.
--- NOTE | 2025-08-03 12:31 | PC.NURSE ---
1200 RN to patient room, used Cristy for, went over her discharge paperwork and instructions. Patient was given [place] handout on the MMR vaccine, she had lab work done upon admission and her Rubella IgG Antibody lab values were low and an MMR vaccine is recommended, patient to read over the information and let the RN know if she would like the vaccine before discharge. RN will return later to go over the infant's discharge instructions once an order is received for him.
[2025-08-03] MEDS: MEASLES,MUMPS,RUBELLA VACCINE 0.5 ML VIAL SUB-Q (14:50)
[2025-08-04 11:15] VITALS: BP 127/74; PULSE 107; RESP 20; TEMP 36.9; O2SAT 99
--- NOTE | 2025-08-04 11:20 | PC.NURSE ---
rim technician was used for mom and baby exams, instructions were given through rim technician and pt. voiced understanding
== END 2025-08-03 15:16 | disposition home or self-care (01) | DRG 540 ==
LOC: ANHLDR 19:58 → ANHOB2 23:50 → ANHOBPP 08-01 03:42 → ANHLDR 08-01 03:50 → ANHOB2 08-01 11:55
PROVIDERS: Admitting Provider Obstetrics & Gynecology; Visit Provider Obstetrics & Gynecology
PROC: 10D00Z1 Extraction of Products of Conception, Low, Open Approach (ICD-10-PCS; CPT 59514; principal; 2025-07-31 20:00)
DX: O34.211 Maternal care for low transverse scar from previous cesarean delivery (principal); Z37.0 Single live birth; Z3A.39 39 weeks gestation of pregnancy; O77.0 Labor and delivery complicated by meconium in amniotic fluid; O76 Abnormality in fetal heart rate and rhythm complicating labor and delivery; O90.81 Anemia of the puerperium; D64.9 Anemia, unspecified
CPT/HCPCS: 36415; 36430; 74176; 74177; 76815; 80053; 82948; 84550; 85014; 85018; 85025; 85027; 85055; 85610; 85730; 86593; 86703; 86762; 86850; 86900; 86901; 86923; 87340; 90710; J0690; A9270; G0432; J0290; J0456; J1885; J2004; J2270; J2274; J2371; J2405; J2590; J2795; J3480; J7030; J7050; J7120; P9016; Q9967